=== PATIENT | female | born 1950 | race African-American/Black ===

== ENCOUNTER 2018-05-12 22:16 | Emergency (ER) | payer MEDICARE, MEDICAID ==
[~2018-05-12] VITALS: Ht 157.5 cm; Wt 81.6 kg
--- NOTE | 2018-05-12 23:00 | NUR ---
pt bib self. comp of having l hand swelling. noticed when bending down. pt aox4. ambulatory w,steady gait. awaiting md tang.
[2018-05-13 01:09] VITALS: BP 138/77
== END 2018-05-13 00:35 | disposition home or self-care (01) ==
LOC: ER 22:16
DX: S63.682A Other sprain of left thumb, initial encounter (principal); S63.592A Other specified sprain of left wrist, initial encounter; Z88.5 Allergy status to narcotic agent; Z60.2 Problems related to living alone; X58.XXXA Exposure to other specified factors, initial encounter; Y93.89 Activity, other specified; Y92.89 Other specified places as the place of occurrence of the external cause; Y99.8 Other external cause status
CPT/HCPCS: 29130; 73110; 73130; 99283; A4606

== ENCOUNTER 2018-07-08 14:34 | Emergency (ER) | payer MEDICARE, MEDICAID ==
[~2018-07-08] VITALS: Ht 170.2 cm; Wt 72.6 kg
[2018-07-08 15:00] VITALS: BP 150/97
[2018-07-08] MEDS ORDERED: TRAMADOL HCL 50 MG TABLET ONE (15:16)
[2018-07-08] MEDS ORDERED: TRAMADOL HCL 50 MG TABLET PO ONE (15:30)
--- NOTE | 2018-07-08 16:36 | NUR ---
PT LEFT WITHOUT D/C OR ACI PAPERWORK. PT REC'D A SPLINT TO THE LT PINKIE FINGER. PT REFUSED IBUPROFEN RX. B TIESHA GRANT IS AWARE.
== END 2018-07-08 16:10 | disposition home or self-care (01) ==
LOC: ER 14:42
DX: S63.637A Sprain of interphalangeal joint of left little finger, initial encounter (principal); Z60.2 Problems related to living alone; Z88.8 Allergy status to other drugs, medicaments and biological substances; W01.0XXA Fall on same level from slipping, tripping and stumbling without subsequent striking against object, initial encounter; Y93.01 Activity, walking, marching and hiking; Y92.89 Other specified places as the place of occurrence of the external cause; Y99.8 Other external cause status
CPT/HCPCS: 29130; 73140; 99283; A4606

== ENCOUNTER 2018-08-15 13:41 | Emergency (ER) | payer MEDICARE, MEDICAID ==
[~2018-08-15] VITALS: Ht 157.5 cm; Wt 79.4 kg
--- NOTE | 2018-08-15 14:10 | NUR ---
PT TO ER BED 11. AAOX4, AMBULATORY, NAD. C/O GROUND LEVEL FALL, FELL ON HER LEFT SIDE WITH COMPLAINT OF 10/10 PAIN. NO SOB, DENIES CP. AT BEDSIDE. AWAITNG ORDER
--- NOTE | 2018-08-15 14:45 | NUR ---
IV ACCESS OBTAINED ON L WRIST 22G. LABS DRAWN TECH AT BEDSIDE
--- NOTE | 2018-08-15 14:45 | NUR ---
PT REFUSED TO TAKE TYLENOL 1000MG PO. DR THAO MADE AWARE. NO NEW ORDER.
[2018-08-15] MEDS ORDERED: DEXAMETHASONE SOD PHOSPHATE 10 MG/ML VIAL IV ONE (15:00)
[2018-08-15] MEDS ORDERED: ACETAMINOPHEN ES 500 MG TABLET PO ONE (15:00)
[2018-08-15] MEDS ORDERED: IV NS 0.9% 500 ML BAG IV ONE (15:00)
[2018-08-15] MEDS ORDERED: ACETAMINOPHEN ES 500 MG TABLET ONE (15:02)
[2018-08-15] MEDS ORDERED: DEXAMETHASONE SOD PHOSPHATE 10 MG/ML VIAL ONE (15:02)
[2018-08-15 15:18] LABS: BASOPHILS % (AUTO) 0.3 % (0.0-2.0); EOSINOPHILS % (AUTO) 1.5 % (0.0-6.0); HEMATOCRIT 44 % (33-45); HEMOGLOBIN 14.4 g/dL (11.5-14.8); LYMPHOCYTES # (AUTO) 2.6 /CMM (0.8-4.8); MEAN CORPUSCULAR HGB CONC 33 g/dl (31.0-36.0); MEAN CORPUSCULAR VOLUME 98 fL (82-100); MONOCYTES # (AUTO) 0.5 /CMM (0.1-1.30); MONOCYTES % (AUTO) 6.8 % (2.0-12.0); NEUTROPHILS # (AUTO) 4.5 /CMM (1.8-8.9); NEUTROPHILS % (AUTO) 58.4 % (43.0-81.0); PLATELET COUNT (AUTO) 204 /CMM (150-450); RED BLOOD CELL COUNT(AUTO) 4.44 MIL/uL (4.0-5.2); WHITE BLOOD COUNT (AUTO) 7.8 K/uL (4.3-11.0)
[2018-08-15 15:26] LABS: CALCIUM, SERUM 9.1 mg/dL (8.5-10.1); CREATININE 0.7 mg/dL (0.6-1.3); POTASSIUM 4.7 mmol/L (3.5-5.1)
--- NOTE | 2018-08-15 16:07 | NUR ---
IV SITE DC
--- NOTE | 2018-08-15 16:10 | NUR ---
Patient discharged to home in stable condition. Written and verbal after care instructions given. Patient verbalizes understanding of instruction.
[2018-08-15 16:40] VITALS: BP 133/82
== END 2018-08-15 16:10 | disposition home or self-care (01) ==
LOC: ER 13:47
DX: S20.212A Contusion of left front wall of thorax, initial encounter (principal); Z96.653 Presence of artificial knee joint, bilateral; Z96.619 Presence of unspecified artificial shoulder joint; Z60.2 Problems related to living alone; Z88.8 Allergy status to other drugs, medicaments and biological substances; W01.198A Fall on same level from slipping, tripping and stumbling with subsequent striking against other object, initial encounter; Y93.89 Activity, other specified; Y92.002 Bathroom of unspecified non-institutional (private) residence as the place of occurrence of the external cause; Y99.8 Other external cause status
CPT/HCPCS: 36415; 71100; 80048; 85025; 96374; 99284; J1100; J7040

== ENCOUNTER 2018-12-19 16:32 | Emergency (ER) | payer MEDICARE, MEDICAID ==
[~2018-12-19] VITALS: Ht 165.1 cm; Wt 74.8 kg
[2018-12-19 17:29] VITALS: BP 139/99
== END 2018-12-19 19:33 | disposition home or self-care (01) ==
LOC: ER 16:41
DX: M79.641 Pain in right hand (principal); M25.531 Pain in right wrist; Z96.653 Presence of artificial knee joint, bilateral; Z96.619 Presence of unspecified artificial shoulder joint; Z60.2 Problems related to living alone; Z88.8 Allergy status to other drugs, medicaments and biological substances; W18.39XA Other fall on same level, initial encounter; Y93.89 Activity, other specified; Y92.89 Other specified places as the place of occurrence of the external cause; Y99.8 Other external cause status
CPT/HCPCS: 73110

== ENCOUNTER 2019-02-04 15:13 | Emergency (ER) | payer MEDICARE, MEDICAID ==
[~2019-02-04] VITALS: Ht 157.5 cm; Wt 81.2 kg
[2019-02-04 15:20] VITALS: BP 142/80
--- NOTE | 2019-02-04 15:20 | NUR ---
AT BEDSIDE FOR EVAL.
[2019-02-04] MEDS ORDERED: IBUPROFEN 600 MG TABLET PO ONE ×2 (15:27→15:30)
--- NOTE | 2019-02-04 15:44 | NUR ---
LIGHTING DIRECTOR AT BEDSIDE FOR XRAY.
--- NOTE | 2019-02-04 16:45 | NUR ---
WRIST SPLINT APPLIED
--- NOTE | 2019-02-04 16:51 | NUR ---
Patient discharged to home in stable condition. Written and verbal after care instructions given. Patient verbalizes understanding of instruction.
== END 2019-02-04 16:52 | disposition home or self-care (01) ==
LOC: ER 15:15
DX: M25.531 Pain in right wrist (principal); Z96.653 Presence of artificial knee joint, bilateral; Z96.619 Presence of unspecified artificial shoulder joint; Z60.2 Problems related to living alone; Z88.9 Allergy status to unspecified drugs, medicaments and biological substances; W01.0XXA Fall on same level from slipping, tripping and stumbling without subsequent striking against object, initial encounter; Y93.89 Activity, other specified; Y92.89 Other specified places as the place of occurrence of the external cause; Y99.8 Other external cause status
CPT/HCPCS: 73110; 73130-TC

== ENCOUNTER 2019-03-16 19:53 | Emergency (ER) | payer MEDICARE, MEDICAID ==
[~2019-03-16] VITALS: Ht 157.5 cm; Wt 68.0 kg
--- NOTE | 2019-03-16 20:52 | NUR ---
PT WAS SEEN BY Bridgette GRANT PA-C. WOUND CARE IN PROGRESS.
--- NOTE | 2019-03-16 21:00 | NUR ---
Patient discharged to home in stable condition. Written and verbal after care instructions given. Patient verbalizes understanding of instruction AND RX. PT AMBULATED OUT WITH A STEADY GAIT. VSS. NAD NOTED.
[2019-03-16 21:07] VITALS: BP 145/89
== END 2019-03-16 21:00 | disposition home or self-care (01) ==
LOC: ER 19:55
DX: S61.210A Laceration without foreign body of right index finger without damage to nail, initial encounter (principal); Z96.653 Presence of artificial knee joint, bilateral; Z96.619 Presence of unspecified artificial shoulder joint; Z60.2 Problems related to living alone; Z88.9 Allergy status to unspecified drugs, medicaments and biological substances; W26.0XXA Contact with knife, initial encounter; Y93.89 Activity, other specified; Y92.89 Other specified places as the place of occurrence of the external cause; Y99.8 Other external cause status

== ENCOUNTER 2020-10-18 19:10 | Inpatient (IN) | payer MEDICARE, OTHER ==
[~2020-10-18] VITALS: Ht 157.5 cm; Wt 71.2 kg
[2020-10-18 20:00] VITALS: BP 143/50
[2020-10-18] MEDS ORDERED: ZOLPIDEM TARTRATE 5 MG TABLET PO PRN (20:00)
[2020-10-18] MEDS ORDERED: BLOOD SUGAR DIAGNOSTIC 1 EACH STRIP IN ONE (20:00)
[2020-10-18] MEDS ORDERED: MAG HYDROX/AL HYDROX/SIMETH 30 ML UDC PO PRN (20:00)
[2020-10-18] MEDS ORDERED: MAGNESIUM HYDROXIDE 30 ML UDC PO PRN (20:00)
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
[2020-10-18] MEDS: ACETAMINOPHEN 325 MG TABLET PO PRN (21:36)
[2020-10-18] MEDS ORDERED: LATA2.5D15 LEFTEYE (23:47)
[2020-10-18] MEDS ORDERED: ALBU6.7H9 IH (23:47)
[2020-10-18] MEDS ORDERED: DOCU-141 PO (23:47)
[2020-10-18] MEDS ORDERED: HYDR-3980 PO (23:47)
[2020-10-18] MEDS ORDERED: LEVO25TA7 PO (23:47)
[2020-10-18] MEDS ORDERED: MELA5TAB PO (23:47)
[2020-10-18] MEDS ORDERED: DONE10TA44 PO (23:47)
[2020-10-18] MEDS ORDERED: DORZ10DR18 LEFTEYE (23:47)
[2020-10-18] MEDS ORDERED: QUET300T2 PO (23:47)
[2020-10-18] MEDS ORDERED: POLY50DR OP (23:47)
[2020-10-19] MEDS ORDERED: Medication Not On Formulary EA (Melatonin 10 MG) PO PRN
[2020-10-19] MEDS ORDERED: HYDROCODONE/APAP 10/325MG TABLET PO PRN
[2020-10-19] MEDS ORDERED: ALBUTEROL SULFATE INH 18 GM HFA.AER.AD IH PRN
--- NOTE | 2020-10-19 00:33 | NUR ---
GPS RN NOTES: PATIENT WAS RESTLESS, ANXIOUS, PACING, COMPLAINING OF BACK PAIN. RATES PAIN LEVEL 8/10. NORCO 10/325MG 1TAB GIVEN PO PRN ORDERED AT 0032. WILL CONTINUE TO MONITOR.
--- NOTE | 2020-10-19 01:30 | NUR ---
GPS RN NOTES: PATIENT REQUESTED FOR SLEEP MEDICATION. AMBIEN 5MG/1TAB GIVEN PO PRN ORDERED AT 0130. WILL CONTINUE TO MONITOR.
[2020-10-19 07:33] LABS: ALBUMIN 2.8 g/dL (3.4-5.0); BILIRUBIN,TOTAL 0.3 mg/dL (0.2-1.0); CALCIUM, SERUM 9.3 mg/dL (8.5-10.1); CREATININE 0.7 mg/dL (0.6-1.3); POTASSIUM 3.9 mmol/L (3.5-5.1)
[2020-10-19] MEDS: LEVOTHYROXINE SODIUM 25 MCG TABLET PO SCH (07:44)
[2020-10-19 07:45] LABS: CHOLESTEROL 169 mg/dL (<200); HDL CHOLESTEROL 70 mg/dL (40-60); LDL 80 mg/dL (0-99); TRIGLYCERIDES 61 mg/dL (30-150)
[2020-10-19 08:00] VITALS: BP 132/71
[2020-10-19] MEDS ORDERED: ALBUTEROL FS 2.5 MG/3 ML VIAL.NEB NEB PRN (08:30)
[2020-10-19] MEDS: DOCUSATE SODIUM 100 MG CAPSULE PO SCH ×2 (09:23→16:07)
[2020-10-19] MEDS: LORAZEPAM 0.5 MG TABLET PO PRN ×2 (13:12→22:38)
[2020-10-19] MEDS: ACETAMINOPHEN 325 MG TABLET PO PRN ×2 (13:13→13:37)
--- NOTE | 2020-10-19 14:52 | NUR ---
PATIENT OFFERED ORDER TRAMADOL PSYCHIATRIST REQUESTS DO NOT GIVE NORCO D/T INTERACTION WITH PSYCHIATRIC TREATMENT. KUSHAL HERR RN
[2020-10-19] MEDS: TRAMADOL HCL 50 MG TABLET PO PRN (15:03)
[2020-10-19 16:00] VITALS: BP 122/80
--- NOTE | 2020-10-19 16:06 | NUR ---
Initial D/C Plan: The pt. currently lives alone at [[address] [facility] [address]]. Pt. stated that she is well supported by services provided by [facility] services [phone] and would like to return home when ready for discharge. SW will continue to collaborate with IDT to ensure safe & proper discharge planning.
--- NOTE | 2020-10-19 16:07 | NUR ---
Support System: SMITA established contact with the pt.'s daughter, Lilly Newman [phone] to gather collateral information. Lilly stated that the pt. continuously changes her mind in regards to Lilly being involved in her plan of care. Noted. Per Lilly, the pt. has no other children and the pt. is also well supported by services provided at [facility] adn would like them to be involved in pt.'s care so that [facility] can have accurate information about the pt,. for JUAN PABLO. Noted SMITA informed Charity ORDOÑEZ.
--- NOTE | 2020-10-19 16:22 | NUR ---
SPOKE WITH MD ABOUT PRN ANTIDIARRHEAL. IMMODIUM PRN ORDERS GIVEN TO FABIANO RAMIREZ FIRE FIGHTERS DISPATCHER UNABLE TO ENTER 2MG IMMODIUM ORDER. KUSHAL HERR RN
[2020-10-19] MEDS: risperiDONE 1 MG TABLET PO SCH (16:53)
[2020-10-19] MEDS: LOPERAMIDE HCL (2 MG CAP) 2 MG CAPSULE PO PRN (16:53)
[2020-10-19 19:59] VITALS: BP 148/78
[2020-10-19] MEDS ORDERED: LATANOPROST EYE DROP 0.005% 2.5 ML BOTTLE LEFTEYE SCH (22:00)
[2020-10-19] MEDS: DORZOLAMIDE OPTH 2% 10 ML BOTTLE EACHEYE SCH (22:02)
[2020-10-19] MEDS: LATANOPROST EYE DROP 0.005% 2.5 ML BOTTLE LEFTEYE SCH (22:03)
[2020-10-19] MEDS: DONEPEZIL 5 MG TABLET PO SCH (22:04)
[2020-10-20] MEDS: TRAMADOL HCL 50 MG TABLET PO PRN ×2 (01:02→12:03)
[2020-10-20] MEDS: LOPERAMIDE HCL (2 MG CAP) 2 MG CAPSULE PO PRN ×2 (04:21→09:38)
[2020-10-20] MEDS: LEVOTHYROXINE SODIUM 25 MCG TABLET PO SCH (06:01)
--- NOTE | 2020-10-20 07:16 | NUR ---
Patient stated that she had 2 x medium BM, with thick consistency. PRN Imodium given at 0400, as per patient's request. Will continue to monitor.
[2020-10-20 08:00] VITALS: BP 131/61
[2020-10-20] MEDS: DOCUSATE SODIUM 100 MG CAPSULE PO SCH ×2 (09:00→16:51)
[2020-10-20] MEDS: DULOXETINE HCL 30 MG CAPSULE.DR PO SCH (09:38)
[2020-10-20] MEDS: risperiDONE 1 MG TABLET PO SCH (09:38)
[2020-10-20 16:00] VITALS: BP 131/82
[2020-10-20] MEDS: LORAZEPAM 0.5 MG TABLET PO PRN (18:19)
[2020-10-20 20:27] VITALS: BP 125/77
[2020-10-20] MEDS: DONEPEZIL 5 MG TABLET PO SCH (21:13)
[2020-10-20] MEDS: TRAZODONE 50 MG TABLET PO PRN (21:14)
[2020-10-20] MEDS: LATANOPROST EYE DROP 0.005% 2.5 ML BOTTLE LEFTEYE SCH (21:17)
[2020-10-20] MEDS: DORZOLAMIDE OPTH 2% 10 ML BOTTLE EACHEYE SCH (21:17)
[2020-10-21] MEDS: LEVOTHYROXINE SODIUM 25 MCG TABLET PO SCH (06:05)
[2020-10-21 08:00] VITALS: BP 135/78
[2020-10-21] MEDS: DULOXETINE HCL 30 MG CAPSULE.DR PO SCH (08:36)
[2020-10-21] MEDS: DOCUSATE SODIUM 100 MG CAPSULE PO SCH ×2 (08:36→16:18)
[2020-10-21] MEDS: ARIPIPRAZOLE 5 MG TABLET PO SCH (08:38)
--- NOTE | 2020-10-21 11:45 | NUR ---
Jennifer Earl Contact: Josh Anguiano ([phone]), Jennifer Earl supervisor conditioning yard, contacted the SW and stated that he wanted to understand what the psychiatrist was requesting for a long acting shot. SW stated that she was not sure but wanted so he stated that he will call back on Saturday. SW asked for any information on the shot and he stated that the pt needs the Abilify long acting.
--- NOTE | 2020-10-21 11:55 | NUR ---
Family Contact: SMITA established contact with the pt.'s daughter, Lilly Newman ([phone]), and informed her that the SW and MD are working with Jennifer Earl and that the pt will be discharged home soon. She asked the SW to set up home health once she is discharged and SW stated that she will.
--- NOTE | 2020-10-21 14:10 | NUR ---
Jennifer Earl Contact: Josh Anguiano ([phone]), Jennifer Earl specialty food products supervisor, and informed him that the shot will be given in the hospital but needs to be brought here. He stated that he will speak to the MD and the pts daughter and go from there.
[2020-10-21] MEDS: TRAMADOL HCL 50 MG TABLET PO PRN (15:22)
[2020-10-21 16:00] VITALS: BP 140/71
[2020-10-21 20:00] VITALS: BP 131/88
[2020-10-21] MEDS: LORAZEPAM 0.5 MG TABLET PO PRN ×2 (21:58→22:00)
[2020-10-21] MEDS: TRAZODONE 50 MG TABLET PO PRN (22:00)
[2020-10-21] MEDS: DONEPEZIL 5 MG TABLET PO SCH (22:01)
[2020-10-21] MEDS: DORZOLAMIDE OPTH 2% 10 ML BOTTLE EACHEYE SCH (22:03)
[2020-10-21] MEDS: LATANOPROST EYE DROP 0.005% 2.5 ML BOTTLE LEFTEYE SCH (22:03)
[2020-10-22 08:00] VITALS: BP 139/98
[2020-10-22] MEDS: LEVOTHYROXINE SODIUM 25 MCG TABLET PO SCH (08:17)
[2020-10-22] MEDS: DULOXETINE HCL 30 MG CAPSULE.DR PO SCH (08:17)
[2020-10-22] MEDS: DOCUSATE SODIUM 100 MG CAPSULE PO SCH ×2 (08:17→15:41)
[2020-10-22] MEDS: ARIPIPRAZOLE 5 MG TABLET PO SCH (08:18)
[2020-10-22] MEDS: ACETAMINOPHEN 325 MG TABLET PO PRN ×2 (15:41→20:18)
[2020-10-22] MEDS: TRAMADOL HCL 50 MG TABLET PO PRN (15:46)
--- NOTE | 2020-10-22 15:47 | NUR ---
At about 1525 pt. fell in the floor by door on her room. Per pt. she forgot to use her walker and lost balance. Per pt. she hit her right elbow and right knee. Pt. with abrasions on the right elbow. Denies any pain on both right knee and right elbow and denies hitting her head. V/S taken: BP 149/95, CA 97, temp 98.0, RR 18 and oxygen sat 97%. Dr. Ignacio notified and Dr. Mullins made aware and no order. lift supervisor made aware and will continue to monitor for safety.
[2020-10-22 16:00] VITALS: BP 149/95
--- NOTE | 2020-10-22 17:10 | NUR ---
GPS/RN CALLED PT'S DAUGHTER KALIN TO NOTIFY OF PT'S FALL. NO ANSWER. PER PATIENT HER DAUGHTER IS ON THE WAY TO THE HOSPITAL AND WOULD COME AROUND 6PM TODAY
--- NOTE | 2020-10-22 17:55 | NUR ---
GPS/RN MESSAGE LEFT TO PT DAUGHTER KALIN TO CALL BACK TO GPS
[2020-10-22 19:54] VITALS: BP 150/89
[2020-10-22 20:00] VITALS: BP 150/89
[2020-10-22] MEDS: DONEPEZIL 5 MG TABLET PO SCH (21:11)
[2020-10-22] MEDS: DORZOLAMIDE OPTH 2% 10 ML BOTTLE EACHEYE SCH (21:11)
[2020-10-22] MEDS: LATANOPROST EYE DROP 0.005% 2.5 ML BOTTLE LEFTEYE SCH (21:11)
[2020-10-22] MEDS: TRAZODONE 50 MG TABLET PO PRN (21:49)
--- NOTE | 2020-10-22 22:00 | NUR ---
RN NOTES ALERT/ORIENTED X3, ROOM AIR, WEARS SUNGLASSES AT NIGHT, COMPLAINING OF HEADACHE, GIVEN TYLENOL, AMBULATES WITH WALKER, SOMETIMES FORGETS, UNSTEADY GAIT, WELL GROOMED, TOOK EYE DROPS AND PM MEDS.
--- NOTE | 2020-10-23 06:05 | NUR ---
RN NOTES ALERT/ORIENTED X3, CALM, COOPERATIVE, NEEDY, CONTINENT OR BOWEL AND BLADDER, FALL PRECAUTION, HAS TO BE REMINDED TO USE WALKER WHEN AMBULATING, SLEPT MOST THE OF SHIFT. KEPT SAFE
[2020-10-23 08:00] VITALS: BP 139/84
[2020-10-23] MEDS: DULOXETINE HCL 30 MG CAPSULE.DR PO SCH (08:14)
[2020-10-23] MEDS: DOCUSATE SODIUM 100 MG CAPSULE PO SCH ×2 (08:14→16:22)
[2020-10-23] MEDS: LEVOTHYROXINE SODIUM 25 MCG TABLET PO SCH (08:14)
[2020-10-23] MEDS: ARIPIPRAZOLE 5 MG TABLET PO SCH (08:14)
[2020-10-23] MEDS: TRAMADOL HCL 50 MG TABLET PO PRN ×2 (08:29→17:01)
[2020-10-23 16:00] VITALS: BP 143/77
[2020-10-23 19:40] LABS: BILIRUBIN,URINE NEGATIVE (NEGATIVE); COLOR,URINE YELLOW (YELLOW); LEUKOCYTE ESTERASE ,URINE TRACE (NEGATIVE); NITRITE, URINE NEGATIVE (NEGATIVE); PROTEIN,URINE NEGATIVE (NEGATIVE); UGLUCOSE NEGATIVE (NEGATIVE); UROBILINOGEN,URINE 0.2 EU/dL (0.2)
[2020-10-23 19:54] LABS: BACTERIA,URINE None seen /HPF (None Seen); RBC,URINE 0-2 /HPF (0-2); SQUAMOUS EPITHELIAL CELL,UR 0-2 /HPF (None Seen)
[2020-10-23 20:30] VITALS: BP 131/79
[2020-10-23 20:36] VITALS: BP 143/83
[2020-10-23] MEDS: DONEPEZIL 5 MG TABLET PO SCH (21:14)
[2020-10-23] MEDS: DORZOLAMIDE OPTH 2% 10 ML BOTTLE EACHEYE SCH (21:15)
[2020-10-23] MEDS: LATANOPROST EYE DROP 0.005% 2.5 ML BOTTLE LEFTEYE SCH (21:15)
[2020-10-23] MEDS: TRAZODONE 50 MG TABLET PO PRN (23:30)
[2020-10-24 08:00] VITALS: BP 157/87
[2020-10-24] MEDS: DULOXETINE HCL 30 MG CAPSULE.DR PO SCH (08:19)
[2020-10-24] MEDS: DOCUSATE SODIUM 100 MG CAPSULE PO SCH ×2 (08:19→16:26)
[2020-10-24] MEDS: LEVOTHYROXINE SODIUM 25 MCG TABLET PO SCH (08:19)
[2020-10-24] MEDS: ARIPIPRAZOLE 5 MG TABLET PO SCH (08:20)
[2020-10-24] MEDS: TRAMADOL HCL 50 MG TABLET PO PRN ×2 (09:03→23:43)
[2020-10-24] MEDS: CEPHALEXIN MONOHYDRATE 500 MG CAPSULE PO SCH ×2 (09:03→16:26)
--- NOTE | 2020-10-24 11:20 | NUR ---
Probable Cause Hearing: Pts 5250 hold was upheld for grave disability.
--- NOTE | 2020-10-24 11:44 | NUR ---
Family Contact: SW contacted the pt.'s daughter, Lilly Newman ([phone]), and inquired when the shot would be brought to the hospital as the advocate mentioned in the hearing that she would bring it. She stated that she is going to pick it up today and bring it today. SMITA stated that the pt will be discharged soon after it is given to prepare her for a discharge date.
[2020-10-24 15:50] VITALS: BP 158/92
[2020-10-24 20:00] VITALS: BP 134/70
--- NOTE | 2020-10-24 22:00 | NUR ---
GPS RN NOTES: OMNICELL DOWN, UNABLE TO PULL MEDS, SUPPLIER DEVELOPMENT MANAGER NOTIFIED. 24 HR HELP DESK NOTIFIED, AWAITING DISPATCH ENGINEERS.
[2020-10-24] MEDS: DORZOLAMIDE OPTH 2% 10 ML BOTTLE EACHEYE SCH (22:36)
[2020-10-24] MEDS: LATANOPROST EYE DROP 0.005% 2.5 ML BOTTLE LEFTEYE SCH (22:36)
--- NOTE | 2020-10-24 23:30 | NUR ---
GPS RN NOTE: TRAMADOL 50MG 1TAB GIVEN PO PRN ORDERED FOR RIGHT SHOULDER PAIN. WILL CONTINUE TO MONITOR.
[2020-10-24] MEDS: DONEPEZIL 5 MG TABLET PO SCH (23:43)
[2020-10-25] MEDS: ACETAMINOPHEN 325 MG TABLET PO PRN (01:42)
[2020-10-25] MEDS: LEVOTHYROXINE SODIUM 25 MCG TABLET PO SCH (07:02)
[2020-10-25 08:00] VITALS: BP 142/67
[2020-10-25] MEDS: DULOXETINE HCL 30 MG CAPSULE.DR PO SCH (08:09)
[2020-10-25] MEDS: DOCUSATE SODIUM 100 MG CAPSULE PO SCH ×2 (08:10→17:00)
[2020-10-25] MEDS: ARIPIPRAZOLE 5 MG TABLET PO SCH (08:10)
[2020-10-25] MEDS: CEPHALEXIN MONOHYDRATE 500 MG CAPSULE PO SCH ×2 (08:10→17:31)
--- NOTE | 2020-10-25 09:00 | NUR ---
RN NOTE- .ALERT ORIENTED,MED COMPLIANT NEEDS ATTENDED,WITHDRAWN, DENIES SI [facility]
--- NOTE | 2020-10-25 11:35 | NUR ---
Family Contact: SW contacted the pt.'s daughter, Lilly Newman ([phone]), and informed her that the pt is going to be discharged tomorrow and she stated that she will come around 12pm.
[2020-10-25] MEDS ORDERED: ARIPIPRAZOLE LAUROXIL 441 MG/1.6 ML IM SCH (12:07)
[2020-10-25 16:00] VITALS: BP 151/86
[2020-10-25] MEDS: TRAMADOL HCL 50 MG TABLET PO PRN (18:36)
[2020-10-25 20:00] VITALS: BP 159/87
[2020-10-25] MEDS: DONEPEZIL 5 MG TABLET PO SCH (21:39)
[2020-10-25] MEDS: LATANOPROST EYE DROP 0.005% 2.5 ML BOTTLE LEFTEYE SCH (21:39)
[2020-10-25] MEDS: DORZOLAMIDE OPTH 2% 10 ML BOTTLE EACHEYE SCH (21:39)
[2020-10-25] MEDS: LORAZEPAM 0.5 MG TABLET PO PRN (22:56)
--- NOTE | 2020-10-25 22:57 | NUR ---
GPS RN NOTES: PATIENT REQUESTED FOR ATIVAN D/T ANXIETY. ATIVAN 0.5MG, 2TABS/1MG GIVEN PO PRN ORDERED AT 2256. WILL CONTINUE TO MONITOR.
[2020-10-26] MEDS: TRAZODONE 50 MG TABLET PO PRN (00:05)
--- NOTE | 2020-10-26 00:08 | NUR ---
GPS RN NOTE: TRAZODONE 50MG 1TAB GIVEN PO PRN ORDERED FOR SLEEP AT 0007. WILL CONTINUE TO MONITOR.
[2020-10-26] MEDS: LEVOTHYROXINE SODIUM 25 MCG TABLET PO SCH (07:31)
[2020-10-26 08:00] VITALS: BP 143/64
[2020-10-26] MEDS: ARIPIPRAZOLE 5 MG TABLET PO SCH (08:21)
[2020-10-26] MEDS: DULOXETINE HCL 30 MG CAPSULE.DR PO SCH (08:21)
[2020-10-26] MEDS: CEPHALEXIN MONOHYDRATE 500 MG CAPSULE PO SCH (08:21)
[2020-10-26] MEDS: DOCUSATE SODIUM 100 MG CAPSULE PO SCH (08:21)
--- NOTE | 2020-10-26 09:00 | NUR ---
RN NOTE- PT IS ALERT ORIENTED TO PERSON PLACE PURPOSE, MINIMAL EYE CONTACT QUIET AND ISOLATIVE MED COMPLIANT ALL HER NEEDS ATTENDED, DENIES SI HI VH FOCUS ON DC TODAY
--- NOTE | 2020-10-26 10:21 | NUR ---
Jennifer Earl Contact: SMITA spoke with Yanique ([phone]) from Jennifer Earl and SW informed her that the pt will not be conserved from the MD in this hospital during this admission. She expressed her disappointment and stated that she would ensure that if the pt needs to be hospitalized again that they would bring her back to this hospital to create a more extensive record. Yanique stated that she wanted the discharge paperwork to be emailed to [email or web address]
[2020-10-26] MEDS: TRAMADOL HCL 50 MG TABLET PO PRN (12:48)
--- NOTE | 2020-10-26 13:40 | NUR ---
RN NOTE- PT DC TO HER HOME AT THIS TIME VIA FAMILY. PT IS ALERT ORIENTED TO PERSON PLACE TIME AND PURPOSE. DENIES SI HI AH VH. PT VALUABLES AND BELONGINGS RETURNED TO HER AND SIGNED FOR. VS STABLE, ID WRISTBAND REMOVED. PRESCRIPTIONS CALLED INTO [facility]. ASSISTED TO CAR DOWNSTAIRS BY STAFF.
--- NOTE | 2020-10-26 14:24 | NUR ---
Discharge Note: Pt will be discharged to her home located at [address] [facility] [address]. Pts daughter, Lilly ([phone]), was informed of the discharge. Pts daughter will come pick her up around 12pm. Upon discharge, the pt appears to be in a euthymic mood and presents with an anxious and flat affect. Pt appears to be alert and oriented x4 (time, place, self and situation). Pt denies both suicidal and homicidal ideation as well as auditory and visual hallucinations. Pt appears to be ambulatory with a steady gait. Pt appears to be groomed and appropriately dressed. Pt will continue to be under the care of psychiatrist, Dr. Andrez Pineda, located at [address] [place] [address]; ([phone]). Pt will also be under the care of control and recovery special tactics, Dr. Jatinder Cruz, located at [address] [address]; ([phone]). The multidisciplinary exit care form was done, printed, signed, and given to the patient. Addendum: 10/26/20 at 1430 by SMITA PATEL SMITA sent the email of notes to [email or web address].
== END 2020-10-26 13:40 | disposition home or self-care (01) | DRG 885 ==
LOC: GPS 19:10
PROVIDERS: ADMIT Psychiatry & Neurology Psychiatry
DX: F29 Unspecified psychosis not due to a substance or known physiological condition (principal); F03.91 Unspecified dementia, unspecified severity, with behavioral disturbance; N39.0 Urinary tract infection, site not specified; F41.9 Anxiety disorder, unspecified; E03.9 Hypothyroidism, unspecified; G89.29 Other chronic pain; H40.9 Unspecified glaucoma; F20.9 Schizophrenia, unspecified; I10 Essential (primary) hypertension; Z73.6 Limitation of activities due to disability; H54.62 Unqualified visual loss, left eye, normal vision right eye; F20.0 Paranoid schizophrenia; Z79.891 Long term (current) use of opiate analgesic
CPT/HCPCS: 36415; 80053-TC; 80061-TC; 81001; 82962-TC; 87081-TC; 97116-TC; 97530-TC; A6253